=== PATIENT | male | born 1960 | race Caucasian/White ===

== ENCOUNTER → 2016-11-08 | Outpatient (CLI) | payer OTHER, BC ==
[~2016-11-08] MED LIST: GADOBUTROL 10mMol/10ml INJECTION IV ONE; IOTHALAMATE MEGLUMINE 60% (600mg/ml) 30ml INJ IV ONE; MELO7.5T12 PO; NORMAL SALINE 50 ML IV ONE; ONDA4TAB4 PO; OXYC1TAB8 PO
--- NOTE | 2016-11-08 15:33 | DI ---
Indication:ITS.REASON: M25.511 PAIN RT SHOULDER Procedure:ARTHROGRAM SHOULDER RT W/FL. SHOULDER INJECTION FOR MRI ARTHROGRAM: After discussing the details of the procedure, including the risks, the patient wished to proceed. Informed consent was obtained. A preprocedural timeout was performed to confirm the correct patient and procedure. Using aseptic technique, local lidocaine anesthetic, and fluoroscopic guidance throughout, a 22-gauge infiltrating needle was directed through the rotator cuff interval and into the joint of the right shoulder. A small amount of x-ray contrast was injected to confirm proper intra-articular placement of the needle tip. A fluoroscopic image was obtained. Following this, 8 cc of dilute gadolinium were slowly instilled within the joint of the right shoulder. The needle was removed. The patient tolerated this procedure well. Following this, the patient was taken by wheelchair to MRI for his scan. Please see the separate MRI report. Impression: Technically successful right intra-articular shoulder joint injection for a MRI arthrogram. Fluoroscopy dose: 1.65 mGy (Cumulative air kerma) Roberto Tierney RPA/IVÁN performed this under my personal supervision. .
--- NOTE | 2016-11-08 17:01 | DI ---
Indication: ITS.REASON: M25.511 PAIN RT SHOULDER PROCEDURE: MRI SHOULDER RIGHT W/CONTRAST: Encounter: Initial Comparison: Right shoulder MRI dated July 10, 2016 Technique: Multiplanar multisequence MR imaging of the right shoulder was performed after the administration of intra-articular contrast. The arthrogram injection is described in a separate procedural report. Findings: The long head biceps tendon is ruptured with retraction and is not seen in the bicipital groove. Subscapularis tendon is thinned and partially torn with some intact fibers remaining. Supraspinatus tendon is intact. The infraspinatus and teres minor tendons are intact. No acute fracture. Suture anchors in the medial humeral head. Mild degenerative change in the acromioclavicular joint. Small amount of contrast in the subacromial subdeltoid bursa. Increased linear T2 signal in the 9-12 o'clock positions of the labrum which is obscured by motion artifact and could represent a small labral tear. Muscular bulk and signal intensity is within normal limits. Impression: 1. Complete rupture of the long head biceps tendon with retraction. 2. Full thickness partial width tear of the subscapularis. 3. Possible posterior superior labral tear. .
== END ==
LOC: IMA 13:55
PROVIDERS: ATTEND Orthopaedic Surgery
DX: S46.111A Strain of muscle, fascia and tendon of long head of biceps, right arm, initial encounter (principal); S46.011A Strain of muscle(s) and tendon(s) of the rotator cuff of right shoulder, initial encounter; X50.0XXA Overexertion from strenuous movement or load, initial encounter; Y93.9 Activity, unspecified; Y92.9 Unspecified place or not applicable; Y99.0 Civilian activity done for income or pay; M25.511 Pain in right shoulder
CPT/HCPCS: 23350; 73222; 77002; A9585; J7050; Q9961